=== PATIENT | female | born 1970 | race Caucasian/White ===

== ENCOUNTER 2017-12-08 12:07 | Inpatient (IN) | payer BC ==
[2017-12-08] MEDS ORDERED: VANCOMYCIN IV PER PHARMACY 1 EACH MISC MISCELLANE PRN (14:05)
[2017-12-08] MEDS ORDERED: CLINDAMYCIN 600 MG in DEXTROSE 5% IN WATER 50 ML IVPB STA ×2 (14:06)
--- NOTE | 2017-12-08 14:18 | ED ---
Skin/Abscess/FB HPI - General Chief complaint: Skin/Abscess/Foreign Body Stated complaint: Infection Time Seen by Provider: 12/08/17 13:43 Source: patient Mode of arrival: ambulatory Limitations: no limitations - History of Present Illness Initial comments: Patient presents with abscesses on her face. Patient states approximately 3 weeks ago she had laser surgery of her face which is similar to a chemical peel , states things have been healing well until one week ago. States one week ago she started developing 3 lesions on her face, 2 on left cheek & 1 under the chin. Patient states she was on ciprofloxacin for 1 week however she felt it was making her itch so she was switched to Bactrim. Patient has been on Bactrim for the past 3 days. States abscesses continue to worsen, feels the one under her chin has doubled in size. States she started noticing swelling of her left cheek and around her left eye since yesterday. Patient states she is type I diabetic. Patient denies fevers, chills, nausea, vomiting, eye pain, vision changes, headache, trouble breathing, stridor. complaint: abscess/boil - Related Data Allergies Allergy/AdvReac Type Severity Reaction Status Date / Time ciprofloxacin [From Cipro] Allergy Rash/Hives Verified 12/08/17 14:15 Review of Systems ROS Statement: Those systems with pertinent positive or pertinent negative responses have been documented in the HPI. Constitutional: Denies: fever, chills, weakness Eyes: Denies: eye pain, eye discharge, vision change ENT: Denies: ear pain, throat pain, dental pain, congestion Respiratory: Denies: cough, dyspnea, wheezes, stridor Cardiovascular: Denies: chest pain, palpitations Endocrine: Denies: fatigue Gastrointestinal: Denies: abdominal pain, nausea, vomiting Genitourinary: Denies: frequency Musculoskeletal: Denies: arthralgia, myalgia Skin: Reports: lesions, change in color Neurological: Denies: headache, confusion Past Medical History Past Medical History: Diabetes Mellitus History of Any Multi-Drug Resistant Organisms: None Reported Additional Past Surgical History / Comment(s): caparl tunnel , trigger finger , facial lazer surgery Past Psychological History: Anxiety Smoking Status: Current some day smoker Past Alcohol Use History: Occasional Past Drug Use History: None Reported General Exam - General Exam Comments Initial Comments: Sitting up in bed. No acute distress. Conversing normally. Calm, pleasant. Not ill appearing. Limitations: no limitations General appearance: alert, in no apparent distress Head exam: Present: atraumatic, normocephalic, other (Patient was firm scab crusted lesion on left cheek just lateral to the nose, approximately 2 cm of induration, no fluctuance appreciated. Similar appearing lesion lateral left cheek just anterior to the ear with approximately half centimeter of induration. Similar appearing lesion below the mandible just left of midline with approximately 1 cm induration. All lesions have minimal surrounding erythema. No active drainage. ) Eye exam: Present: PERRL, EOMI, periorbital swelling, other (Mild left eye periorbital edema. Left eye appears normal. Eye movements intact bilaterally without pain. No proptosis. No signs of orbital cellulitis appreciated.). Absent: scleral icterus, conjunctival injection, periorbital tenderness ENT exam: Present: normal exam, normal oropharynx, mucous membranes moist, other (Oropharynx clear. No stridor. No intraoral swelling. No elevation of the floor of the mouth. No James angina findings appreciated.) Neck exam: Present: full ROM, other (See Head above). Absent: meningismus Respiratory exam: Present: normal lung sounds bilaterally. Absent: respiratory distress, wheezes, rales, rhonchi, stridor Cardiovascular Exam: Present: regular rate, normal rhythm GI/Abdominal exam: Present: soft. Absent: distended, tenderness, guarding, rebound Extremities exam: Present: normal inspection Neurological exam: Present: alert, oriented X3 Psychiatric exam: Present: normal affect, normal mood Skin exam: Present: warm, dry, other (See above. ) Course Vital Signs 12/08/17 12:51 Temperature 97.6 F Pulse Rate 83 Respiratory 18 Rate Blood Pressure 171/75 O2 Sat by Pulse 100 Oximetry Medical Decision Making - Medical Decision Making Patient findings appear to be consistent with 3 lesions on face and neck that are indurated, no fluctuance appreciated. No loculation on bedside ultrasound visualization of all 3 lesions. Do not feel patient would benefit from incision and drainage at this time. Patient does have worsening of symptoms overnight despite being on outpatient antibiotics x 1 week, bactrim x 3 days. Patient does have signs of developing left periorbital cellulitis, without orbital cellulitis. Patient does not of any signs of airway compromise. At this time and do not feel patient has James angina. At this time I feel it patient needs IV antibiotics, as she has failed outpatient therapy. We'll get basic lab work and start vancomycin and clindamycin. Will admit for monitoring of symptoms and IV antibiotic therapy. Spoke with Dr. Abdi, updated patient condition, agrees with admission, no further requests at this time. Patient updated without results and plan. Disposition Clinical Impression: Facial cellulitis Disposition: ADMITTED IP TO THIS HOSP Condition: Good Referrals: Nonstaff,Physician [Primary Care Provider] - 1-2 days
[2017-12-08 14:29] LABS: Glucose,Whole Blood 319 mg/dL (75-99)
[2017-12-08] MEDS ORDERED: VANCOMYCIN 1,250 MG in SODIUM CHLORIDE 0.9% 250 ML IVPB ONE (14:30)
[2017-12-08 15:05] LABS: Basophils # (A) 0.1 k/uL (0-0.2); Basophils % (A) 0 %; Eosinophils # (A) 0.5 k/uL (0-0.7); Eosinophils % (A) 4 %; HCT 40.8 % (34.0-46.0); HGB 13.9 gm/dL (11.4-16.0); Lymphocytes # (A) 2.1 k/uL (1.0-4.8); Lymphocytes % (A) 15 %; MCH 31.6 pg (25.0-35.0); MCHC 34.1 g/dL (31.0-37.0); MCV 92.7 fL (80.0-100.0); Mean Platelet Volume 7.1; Monocytes # (A) 0.8 k/uL (0-1.0); Monocytes % (A) 6 %; Neutrophils # (A) 10.1 k/uL (1.3-7.7); Neutrophils % (A) 74 %; Platelet Count 312 k/uL (150-450); RDW 13.1 % (11.5-15.5); WBC 13.7 k/uL (3.8-10.6)
[2017-12-08 15:13] LABS: Anion Gap 10 mmol/L; Blood Urea Nitrogen 20 mg/dL (7-17); Calcium 9.7 mg/dL (8.4-10.2); Carbon Dioxide 26 mmol/L (22-30); Chloride 101 mmol/L (98-107); Glucose 333 mg/dL (74-99); Potassium 4.7 mmol/L (3.5-5.1); Sodium 137 mmol/L (137-145)
[2017-12-08 15:35] VITALS: BMI 22.4
[2017-12-08] MEDS ORDERED: ACETAMINOPHEN TAB 325 MG TAB PO PRN (17:17)
[2017-12-08] MEDS ORDERED: diphenhydrAMINE 50 MG CAP PO PRN (17:17)
[2017-12-08 17:21] LABS: Glucose,Whole Blood 272 mg/dL (75-99)
[2017-12-08] MEDS: INSULIN ASPART 100 UNIT/ML 1 ML 10 ML VIAL SQ SCH ×2 (17:54→20:17)
[2017-12-08 20:06] LABS: Glucose,Whole Blood 251 mg/dL (75-99)
[2017-12-08] MEDS: SERTRALINE 25 MG TAB PO SCH (20:16)
[2017-12-08] MEDS: VANCOMYCIN 1,250 MG in SODIUM CHLORIDE 0.9% 250 ML IVPB SCH (21:43)
[2017-12-09 06:25] LABS: Basophils % (A) 0 %; Eosinophils # (A) 0.6 k/uL (0-0.7); Eosinophils % (A) 6 %; HCT 39.4 % (34.0-46.0); HGB 12.8 gm/dL (11.4-16.0); Lymphocytes # (A) 1.8 k/uL (1.0-4.8); Lymphocytes % (A) 20 %; MCHC 32.4 g/dL (31.0-37.0); MCV 95.8 fL (80.0-100.0); Mean Platelet Volume 7.1; Monocytes # (A) 0.5 k/uL (0-1.0); Monocytes % (A) 5 %; Neutrophils # (A) 5.8 k/uL (1.3-7.7); Neutrophils % (A) 66 %; Platelet Count 282 k/uL (150-450); RBC 4.12 m/uL (3.80-5.40); RDW 13.1 % (11.5-15.5); WBC 8.9 k/uL (3.8-10.6)
[2017-12-09] MEDS: INSULIN ASPART 100 UNIT/ML 1 ML 10 ML VIAL SQ SCH ×6 (06:28→21:23)
[2017-12-09] MEDS: SODIUM CHLORIDE 0.9% 1,000 ML IV SCH ×4 (06:28→16:15)
[2017-12-09 06:33] LABS: Anion Gap 7 mmol/L; Blood Urea Nitrogen 15 mg/dL (7-17); Calcium 8.8 mg/dL (8.4-10.2); Carbon Dioxide 26 mmol/L (22-30); Chloride 106 mmol/L (98-107); Glucose 188 mg/dL (74-99); Potassium 4.6 mmol/L (3.5-5.1); Sodium 139 mmol/L (137-145)
[2017-12-09 06:44] LABS: Glucose,Whole Blood 188 mg/dL (75-99)
[2017-12-09] MEDS ORDERED: INSULIN DETEMIR 100 UNIT/ML 10 ML VIAL SQ SCH ×2 (09:00→21:00)
[2017-12-09] MEDS: VANCOMYCIN 1,250 MG in SODIUM CHLORIDE 0.9% 250 ML IVPB SCH ×2 (09:21→21:08)
[2017-12-09] MEDS: IBUPROFEN 800 MG TAB PO PRN ×3 (09:21→21:53)
[2017-12-09] MEDS: NICOTINE 21MG/24HR PATCH TRANSDERM SCH (11:35)
[2017-12-09 11:58] LABS: Glucose,Whole Blood 461 mg/dL (75-99)
[2017-12-09 12:08] LABS: Glucose,Whole Blood 457 mg/dL (75-99)
[2017-12-09] MEDS ORDERED: NON-FORMULARY DRUG (Insulin Lispro [Humalog Kwikpen] 0 UNIT) SQ SCH (12:30)
[2017-12-09 13:41] LABS: Glucose,Whole Blood 254 mg/dL (75-99)
[2017-12-09 13:58] LABS: Hemoglobin A1C 9.1 % (4.0-6.0)
--- NOTE | 2017-12-09 14:45 | P.GSCN ---
<Siobhan Ballesteros M - Last Filed: 12/09/17 14:48> History of Present Illness Consult date: 12/09/17 Reason for Consult: Facial cellulitis History of present illness: 47-year-old female being seen at the request of the attending for a surgical eval in a patient who developed an abscess under the chin and left side of the face. Patient states approximately 3 weeks ago had laser surgery on her upper lip similar to a chemical peel for scar tissue. 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 Patient stated that she follow protocol at work after the incident . Was worked up there was no evidence of MRSA and was started on prophylactically Cipro. Patient stated that she took the Cipro for at least a week had what she thought was a reaction swelling to the left side of the face with swelling in the hands as well . Patient stated that she went to an urgent care in the community that she lives in and was switched to Bactrim with a topical lotion. Patient stated that the abscess seemed to get worse there was itching increase swelling of the left cheek around the left eye. The abscess under the chin seem to be getting worse as well. There was no fever chills. Patient has a history of type 1 diabetes. Denied any prior episodes when questioning. Patient states she became concerned presented to the emergency room to be evaluated for the above- mentioned symptoms. Patient does not live in the community lives about 2 hours away. Patient states she is here visiting her mother. Patient states no cultures obtained.. On the left cheek lateral to the nose 2 cm induration noted similar lesions of the left cheek just anterior to the left ear. There is also a similar lesion below the mandible. Under the left chin lesion noted firm positive tenderness no drainage noted the lesions have minimal surrounding erythema Review of Systems Essentially unremarkable except as mentioned in the present illness Past Medical History Past Medical History: Diabetes Mellitus Additional Past Medical History / Comment(s): Type 1 diabetes mellitus History of Any Multi-Drug Resistant Organisms: None Reported Additional Past Surgical History / Comment(s): caparl tunnel , trigger finger , facial lazer surgery Past Anesthesia/Blood Transfusion Reactions: No Reported Reaction Past Psychological History: Anxiety Smoking Status: Current some day smoker Past Alcohol Use History: Occasional Past Drug Use History: None Reported - Past Family History Mother Family Medical History: Diabetes Mellitus, Hypertension Additional Family Medical History / Comment(s): Type 2 diabetes mellitus Medications and Allergies Home Medications Medication Instructions Recorded Confirmed Type Ibuprofen [Motrin Ib] 600 mg PO Q6H PRN 12/08/17 12/08/17 History Insulin Glargine,Hum.rec.anlog 24 unit SQ AC-BRKFST 12/08/17 12/08/17 History [Lantus Solostar] Insulin Lispro [humaLOG Kwikpen] 2 - 10 unit SQ AC-TID 12/08/17 12/08/17 History Sertraline [Zoloft] 25 mg PO HS 12/08/17 12/08/17 History Sulfamethox-Tmp 800-160Mg [Bactrim 1 tab PO BID 12/08/17 12/08/17 History DS 800-160 mg] diphenhydrAMINE [Benadryl] 50 mg PO TID PRN 12/08/17 12/08/17 History Allergies Allergy/AdvReac Type Severity Reaction Status Date / Time ciprofloxacin [From Cipro] Allergy Rash/Hives Verified 12/08/17 14:15 Surgical - Exam Vital Signs Temp Pulse Resp BP Pulse Ox 97.6 F 83 18 171/75 100 12/08/17 12:51 12/08/17 12:51 12/08/17 12:51 12/08/17 12:51 12/08/17 12:51 GENERAL APPEARANCE: Pleasant talkative 47-year-old female patient is alert, oriented, in no acute distress. VITAL SIGNS: Reviewed HEENT: Head is normocephalic and atraumatic. Pupils are equal and reactive. The nares are patent. Oropharynx is clear without lesions. NECK: Supple without lymphadenopathy. Traches midline. HEART: S1, S2. Regular rate and rhythm. LUNGS: No crackles or wheezes are heard. ABDOMEN: Soft, nontender, nondistended with good bowel sounds. No peritoneal signs. No palpable organomegaly or masses. EXTREMITIES: Normal skin color and turgor. No cyanosis, rash, ulceration, clubbing or edema. Radial pedal pulses are 2/4 bilaterally. NEUROLOGICAL: No focal deficits. Strength and sensation are grossly intact. Skin scabbed crusted lesions noted on the upper chin no redness, scabbed lesion crusted on the left cheek lateral to the nose, 2 cm induration. A lesion left lateral cheek just anterior to the ear. A lesion noted to the left mandible. There is mild surrounding erythema to the skin lesions no active drainage noted Results - Labs 12/09/17 05:48 12/09/17 05:48 Abnormal Lab Results - Last 24 Hours (Table) 12/08/17 12/08/17 12/08/17 Range/Units 14:35 14:35 17:18 WBC 13.7 H (3.8-10.6) k/uL Neutrophils # 10.1 H (1.3-7.7) k/uL BUN 20 H (7-17) mg/dL Glucose 333 H (74-99) mg/dL POC Glucose (mg/dL) 272 H (75-99) mg/dL 12/08/17 12/09/17 12/09/17 Range/Units 20:03 05:48 06:21 WBC (3.8-10.6) k/uL Neutrophils # (1.3-7.7) k/uL BUN (7-17) mg/dL Glucose 188 H (74-99) mg/dL POC Glucose (mg/dL) 251 H 188 H (75-99) mg/dL 12/09/17 12/09/17 12/09/17 Range/Units 11:46 11:58 13:40 WBC (3.8-10.6) k/uL Neutrophils # (1.3-7.7) k/uL BUN (7-17) mg/dL Glucose (74-99) mg/dL POC Glucose (mg/dL) 461 H 457 H 254 H (75-99) mg/dL Diabetes panel 12/08/17 12/09/17 Range/Units 14:35 05:48 Sodium 137 139 (137-145) mmol/L Potassium 4.7 4.6 (3.5-5.1) mmol/L Chloride 101 106 (98-107) mmol/L Carbon Dioxide 26 26 (22-30) mmol/L BUN 20 H 15 (7-17) mg/dL Creatinine 0.73 0.70 (0.52-1.04) mg/dL Glucose 333 H 188 H (74-99) mg/dL Calcium 9.7 8.8 (8.4-10.2) mg/dL Calcium panel 12/08/17 12/09/17 Range/Units 14:35 05:48 Calcium 9.7 8.8 (8.4-10.2) mg/dL Pituitary panel 12/08/17 12/09/17 Range/Units 14:35 05:48 Sodium 137 139 (137-145) mmol/L Potassium 4.7 4.6 (3.5-5.1) mmol/L Chloride 101 106 (98-107) mmol/L Carbon Dioxide 26 26 (22-30) mmol/L BUN 20 H 15 (7-17) mg/dL Creatinine 0.73 0.70 (0.52-1.04) mg/dL Glucose 333 H 188 H (74-99) mg/dL Calcium 9.7 8.8 (8.4-10.2) mg/dL Adrenal panel 12/08/17 12/09/17 Range/Units 14:35 05:48 Sodium 137 139 (137-145) mmol/L Potassium 4.7 4.6 (3.5-5.1) mmol/L Chloride 101 106 (98-107) mmol/L Carbon Dioxide 26 26 (22-30) mmol/L BUN 20 H 15 (7-17) mg/dL Creatinine 0.73 0.70 (0.52-1.04) mg/dL Glucose 333 H 188 H (74-99) mg/dL Calcium 9.7 8.8 (8.4-10.2) mg/dL Assessment and Plan Assessment: Impression Present on admission facial cellulitis failed outpatient treatment on Cipro 1 week switched to Bactrim for 3 days Type 1 diabetes Present on admission 3 skin lesions on the face neck and chin on the left side Left periorbital cellulitis Current every day smoker A recent laser treatment to the upper lip Plan Patient will undergo an incision and drainage of the abscess under the chin today per Dr. Forbes Await infectious disease eval pending Pain control IV antibiotics as ordered DVT and GI prophylaxis Keep nothing by mouth until procedure Cultures to be obtained follow up on results Surgical consultation dictated for Dr. Forbes The above impression and plan of care have been discussed and directed by signing physician. Siobhan Ballesteros nurse practitioner acting as scribe for signing physician. <Tootie Forbes - Last Filed: 12/10/17 04:30> Surgical - Exam Vital Signs Temp Pulse Resp BP Pulse Ox 97.6 F 83 18 171/75 100 12/08/17 12:51 12/08/17 12:51 12/08/17 12:51 12/08/17 12:51 12/08/17 12:51 Results - Labs 12/09/17 05:48 12/09/17 05:48 Abnormal Lab Results - Last 24 Hours (Table) 12/09/17 12/09/17 12/09/17 Range/Units 05:48 05:48 06:21 Glucose 188 H (74-99) mg/dL POC Glucose (mg/dL) 188 H (75-99) mg/dL Hemoglobin A1c 9.1 H (4.0-6.0) % 12/09/17 12/09/17 12/09/17 Range/Units 11:46 11:58 13:40 Glucose (74-99) mg/dL POC Glucose (mg/dL) 461 H 457 H 254 H (75-99) mg/dL Hemoglobin A1c (4.0-6.0) % 12/09/17 12/09/17 Range/Units 14:51 17:16 Glucose (74-99) mg/dL POC Glucose (mg/dL) 115 H 167 H (75-99) mg/dL Hemoglobin A1c (4.0-6.0) % Diabetes panel 12/09/17 12/09/17 Range/Units 05:48 05:48 Sodium 139 (137-145) mmol/L Potassium 4.6 (3.5-5.1) mmol/L Chloride 106 (98-107) mmol/L Carbon Dioxide 26 (22-30) mmol/L BUN 15 (7-17) mg/dL Creatinine 0.70 (0.52-1.04) mg/dL Glucose 188 H (74-99) mg/dL Hemoglobin A1c 9.1 H (4.0-6.0) % Calcium 8.8 (8.4-10.2) mg/dL Calcium panel 12/09/17 Range/Units 05:48 Calcium 8.8 (8.4-10.2) mg/dL Pituitary panel 12/09/17 Range/Units 05:48 Sodium 139 (137-145) mmol/L Potassium 4.6 (3.5-5.1) mmol/L Chloride 106 (98-107) mmol/L Carbon Dioxide 26 (22-30) mmol/L BUN 15 (7-17) mg/dL Creatinine 0.70 (0.52-1.04) mg/dL Glucose 188 H (74-99) mg/dL Calcium 8.8 (8.4-10.2) mg/dL Adrenal panel 12/09/17 Range/Units 05:48 Sodium 139 (137-145) mmol/L Potassium 4.6 (3.5-5.1) mmol/L Chloride 106 (98-107) mmol/L Carbon Dioxide 26 (22-30) mmol/L BUN 15 (7-17) mg/dL Creatinine 0.70 (0.52-1.04) mg/dL Glucose 188 H (74-99) mg/dL Calcium 8.8 (8.4-10.2) mg/dL
[2017-12-09 14:53] LABS: Glucose,Whole Blood 115 mg/dL (75-99)
--- NOTE | 2017-12-09 14:59 | HP ---
HISTORY AND PHYSICAL CHIEF COMPLAINT: Painful infection of the face. HISTORY OF PRESENT ILLNESS: This is the first known admission to this hospital for this 47-year-old G0, P0, A3 white female. She has a small abscess on the lateral jaw, which then associated with an ulcer on the left cheek. She apparently had some kind of a dermatologic "peel" after which she developed redness, pain, swelling and heat in the face. She had been on Cipro and then she thinks she had a really reaction to that. She stopped and her face got worse and she went back on Cipro. Eventually she wound up coming into the emergency room where she was diagnosed as having Staph cellulitis of the face with several areas of blood in skin breakdown or ulceration, mass underneath the chin. She is diabetic. REVIEW OF SYSTEMS: She has had no headaches, no neurologic deficits, change in vision or hearing, chest pain, shortness of breath, cough, hemoptysis, hypertension, murmurs, rheumatic fever, arthralgias, orthopnea, PND, abdominal pain, nausea, vomiting, hematemesis, melena, hematochezia, colitis, diverticulosis, diverticulitis, hemorrhoids, jaundice, hepatitis, cirrhosis, hematuria, frequency, urgency, arthralgias, etc. Her diabetes is usually well controlled. Past medical history, family history and social history reveal that she is on Humalog sliding scale with Lantus 26 units a day. She IS NOW ALLERGIC TO CIPRO. Surgically she has had a trigger finger repair and two carpal tunnel releases. She smokes about a pack cigarettes a day. PHYSICAL EXAMINATION: Blood pressure is 125/78 with a pulse of 83, respirations of 24, and she is afebrile. In general, she appeared to be in some discomfort. She had extensive cellulitis of the face with a necrotic area in front of the left cheek as well as just below and in front of the left ear. She had several eschars on the skin just above the upper lip. She also had a mass in the submental area which may be adenopathy or an abscess. Chest is clear. Cardiac exam is normal. No murmurs. The abdomen is soft, nontender. EXTREMITIES: Normal. IMPRESSION: 1. Erysipelas, probably secondary to Staphylococcus on the face. 2. Insulin-dependent diabetes mellitus. PLAN: 1. Bed rest. 2. IV fluids. 3. IV vancomycin. 4. Consult with surgical to see if there is a mass underneath the jaw that could be drained. 5. Infectious Disease. MMODL / IJN: [id number] /
--- NOTE | 2017-12-09 15:04 | PN ---
PROGRESS NOTE DATE OF SERVICE: 12/09/17 CHIEF COMPLAINT: Facial cellulitis. HISTORY OF PRESENT ILLNESS: This lady is doing particular well in terms of the discomfort. There may be slight decrease in swelling. PHYSICAL EXAM: She continues to have extensive erythema and swelling around the cheeks in the upper lip and somewhat around the left eye. IMPRESSION: Facial cellulitis and possible submental abscess, probably due to Staphylococcus aureus. PLAN: Continue with IV antibiotics. MMODL / IJN: [id number] /
[2017-12-09 15:40] LABS: Glucose,Whole Blood 78 mg/dL (75-99)
[2017-12-09 17:22] LABS: Glucose,Whole Blood 167 mg/dL (75-99)
[2017-12-09] MEDS ORDERED: cefTRIAXone IN SWFI 2,000 MG/20 ML SYRINGE IVP SCH (20:00)
[2017-12-09] MEDS: MUPIROCIN 2% OINT 22 GM TUBE TOPICAL SCH (20:49)
[2017-12-09] MEDS: MULTIVITAMINS, THERA 1 EACH TAB PO SCH (20:50)
[2017-12-09] MEDS ORDERED: SERTRALINE 25 MG TAB PO SCH (21:00)
[2017-12-09 21:01] LABS: Glucose,Whole Blood 99 mg/dL (75-99)
[2017-12-09] MEDS: SERTRALINE 25 MG TAB PO SCH (21:07)
[2017-12-09] MEDS: diphenhydrAMINE 25 MG CAP PO PRN (21:14)
--- NOTE | 2017-12-09 23:00 | P.CONS ---
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 She relates that it is expected it is a very busy job and because there is a forensic component is very exacting. Generally she feels well and because she was having some difficulty with scarring on her face she wants under a laser dermabrasion to her face which went very well. She was having increasing improvements when she suddenly had a significant change. She had developed a small injury on the her left hand dorsal surface and was given ciprofloxacin. She then apparently developed a significant ALLERGIC reaction after attempting to finish the course of the antibiotic. She relates that she had stopped and started several times and then was trying to complete the course of antibiotic. She then had the sudden onset of hives that were significant and even a bit of tongue swelling which she treated with Benadryl and stopping the antibiotic. Shortly thereafter she developed evidence of the lesions on the left side of her face and submental. They became much worse. She started feeling very poorly with fever and significant swelling including to her left eye. Because she felt so poorly she brought her to dogs to stay with her mother which is here in our community. She does have a history of diabetes mellitus type 1 and started feeling much more poorly. Constantly she came to our hospital for further intervention. She was found evidence of significant abscess submental, and has been seen by surgery with plans for incision and drainage to the site and possibly debridement of some of the other abscess on the face. The patient relates that she was doing very well after laser dermabrasion and did not think that the procedure was related to the current difficulties. However continues to have areas of peeling skin from the dermabrasion. Review of Systems 47-year-old woman who relates that she's feeling slightly better since coming to Hospital HEENT:Denies headache or acute visual change. Denies sinus or mouth discomforts. Denies neck stiffness or pain. Denies significant oral cavity pain. Denies difficulty on swallowing. Lungs: Denies significant shortness of breath, cough, sputum production, or hemoptysis. Cardiovascular: Denies significant shortness of breath, chest pain, chest wall pain, orthopnea, dyspnea on exertion, syncope Gastrointestinal:Denies nausea, vomiting, diarrhea, constipation, hematemesis, melena, hematochezia. No no significant change of bowel habit noticed. Musculoskeletal: denies significant myalgias or arthralgias. No new joint swelling. Denies new back pain. Skin: As per the HPI History of Laser Procedure to the Skin of Her Face and Then Developed Multiple Abscesses. Neuro: Denies headache or visual change. Denies any new onset weakness or difficulty with ambulation. Denies falls or seizures. Psychiatric:Denies anxiety or depression. Endocrine: Denies significant fatigue, denies significant weight loss or weight gain. Relates that the diabetes mellitus type 1 is usually well controlled Past Medical History Past Medical History: Diabetes Mellitus Additional Past Medical History / Comment(s): Type 1 diabetes mellitus History of Any Multi-Drug Resistant Organisms: None Reported Additional Past Surgical History / Comment(s): caparl tunnel , trigger finger , facial lazer surgery Past Anesthesia/Blood Transfusion Reactions: No Reported Reaction Past Psychological History: Anxiety Additional Psychological History / Comment(s): Single but has a boyfriend. 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 Occasional smoker. No significant alcohol use. No recreational drug use. No international travel has 2 pet dogs and a parrot Smoking Status: Current some day smoker Past Alcohol Use History: Occasional Past Drug Use History: None Reported - Past Family History Mother Family Medical History: Diabetes Mellitus, Hypertension Additional Family Medical History / Comment(s): Type 2 diabetes mellitus Medications and Allergies Home Medications and Allergies Comment(s): Current Medications Acetaminophen (Tylenol Tab) 650 mg PO Q8HR PRN PRN Reason: Fever and/ or Pain Last Admin: 12/08/17 17:40 Dose: 650 mg Ceftriaxone Sodium (Rocephin) 2,000 mg IVP HS ZANE Last Admin: 12/09/17 20:13 Dose: 2,000 mg Diphenhydramine HCl (Benadryl) 50 mg PO QID PRN PRN Reason: Itching Last Admin: 12/08/17 20:16 Dose: 50 mg Diphenhydramine HCl (Benadryl) 50 mg PO TID PRN PRN Reason: Allergic Reaction Last Admin: 12/09/17 21:14 Dose: 50 mg Sodium Chloride (Saline 0.9%) 1,000 mls @ 125 mls/hr IV .Q8H ZANE Last Admin: 12/09/17 16:15 Dose: Not Given Vancomycin HCl 1,250 mg/ (Sodium Chloride) 250 mls @ 125 mls/hr IVPB Q12HR [facility] Last Admin: 12/09/17 21:08 Dose: 125 mls/hr Ibuprofen (Motrin) 800 mg PO QID PRN PRN Reason: Pain Last Admin: 12/09/17 21:53 Dose: 800 mg Insulin Aspart (Novolog) 0 unit SQ ACHS [facility] PRN Reason: Protocol Last Admin: 12/09/17 21:23 Dose: Not Given Insulin Aspart (Novolog) 10 unit SQ AC-TID [facility] Last Admin: 12/09/17 17:58 Dose: 4 unit Insulin Detemir (Levemir) 30 unit SQ [facility] Last Admin: 12/09/17 19:19 Dose: Not Given Miscellaneous Information (Vancomycin Trough Due) 1 each MISCELLANE ONCE ONE Stop: 12/10/17 08:01 Multivitamins (Theragran) 1 each PO DAILY@1200 [facility] Last Admin: 12/09/17 20:50 Dose: 1 each Mupirocin (Bactroban Oint) 1 applic TOPICAL TID [facility] Last Admin: 12/09/17 20:49 Dose: 1 applic Nicotine (Habitrol 21mg/24hr Patch) 1 patch TRANSDERM DAILY [facility] Last Admin: 12/09/17 11:35 Dose: 1 patch Sertraline HCl (Zoloft) 25 mg PO [facility] Last Admin: 12/09/17 21:07 Dose: 25 mg Home Medications Medication Instructions Recorded Confirmed Type Ibuprofen [Motrin Ib] 600 mg PO Q6H PRN 12/08/17 12/08/17 History Insulin Glargine,Hum.rec.anlog 24 unit SQ AC-BRKFST 12/08/17 12/08/17 History [Lantus Solostar] Insulin Lispro [humaLOG Kwikpen] 2 - 10 unit SQ AC-TID 12/08/17 12/08/17 History Sertraline [Zoloft] 25 mg PO HS 12/08/17 12/08/17 History Sulfamethox-Tmp 800-160Mg [Bactrim 1 tab PO BID 12/08/17 12/08/17 History DS 800-160 mg] diphenhydrAMINE [Benadryl] 50 mg PO TID PRN 12/08/17 12/08/17 History Allergies Allergy/AdvReac Type Severity Reaction Status Date / Time ciprofloxacin [From Cipro] Allergy Rash/Hives Verified 12/08/17 14:15 Physical Exam Vitals: Vital Signs Temp Pulse Resp BP Pulse Ox 12/09/17 21:17 73 16 12/09/17 20:06 97.8 F 73 16 126/65 97 12/09/17 16:41 98.2 F 77 16 136/79 97 12/09/17 16:40 98.2 F 136 H 28 H 96 12/09/17 11:37 97.7 F 65 18 127/71 12/09/17 08:35 98.2 F 71 20 108/62 100 12/08/17 23:53 88 18 112/85 98 Intake and Output 12/09/17 12/09/17 12/09/17 06:59 14:59 22:59 Intake Total 240 200 Balance 240 200 Intake: Oral 240 200 Other: Voiding Method Toilet # Voids 2 5 1 47-year-old woman presents to Hospital complaining multiple abscess. Relates that the left eye swelling is improved and feels slightly better. HEENT: Anicteric conjunctiva are pink and moist nasal mucosa grossly intact without significant lesions, there is no thrush. On the exam left eye only has minimal swelling. There are multiple somewhat necrotic areas on her face including the left side of the face at the base of the nose as well as to the lateral aspect of the cheek. In the large submental abscess that is very tender with a necrotic area. Neck: The neck is supple without significant lymphadenopathy or thyromegaly. Lungs: Good bilateral air entry without significant crackles or wheezes. There is no significant bronchial sounds. There is no egophony or dullness. Heart: Regular rate and rhythm with an audible S1-S2, no S3 no S4. There is no significant murmur click or rub, PMI was nondisplaced. Abdomen: Positive bowel sounds soft and nontender without palpable masses or organomegaly. There was no guarding or rebound. Extremities: The upper extremities have excellent pulses they are symmetric, no significant petechiae or telangiectasia. No splinter hemorrhages were noted. The lower extremities are free from significant edema. The peripheral pulses were 2+ and symmetric. Neuro: Awake alert oriented to person place and time. There are no acute new gross focal sensory motor deficits. Results CBC & Chem 7: 12/09/17 05:48 12/09/17 05:48 Labs: Abnormal Lab Results - Last 24 Hours (Table) 12/09/17 12/09/17 12/09/17 Range/Units 05:48 05:48 06:21 Glucose 188 H (74-99) mg/dL POC Glucose (mg/dL) 188 H (75-99) mg/dL Hemoglobin A1c 9.1 H (4.0-6.0) % 12/09/17 12/09/17 12/09/17 Range/Units 11:46 11:58 13:40 Glucose (74-99) mg/dL POC Glucose (mg/dL) 461 H 457 H 254 H (75-99) mg/dL Hemoglobin A1c (4.0-6.0) % 12/09/17 12/09/17 Range/Units 14:51 17:16 Glucose (74-99) mg/dL POC Glucose (mg/dL) 115 H 167 H (75-99) mg/dL Hemoglobin A1c (4.0-6.0) % Laboratory Results WBC 8.9 k/uL (3.8-10.6) 12/09/17 05:48 RBC 4.12 m/uL (3.80-5.40) 12/09/17 05:48 Hgb 12.8 gm/dL (11.4-16.0) 12/09/17 05:48 Hct 39.4 % (34.0-46.0) 12/09/17 05:48 MCV 95.8 fL (80.0-100.0) 12/09/17 05:48 MCH 31.0 pg (25.0-35.0) 12/09/17 05:48 MCHC 32.4 g/dL (31.0-37.0) 12/09/17 05:48 RDW 13.1 % (11.5-15.5) 12/09/17 05:48 Plt Count 282 k/uL (150-450) 12/09/17 05:48 Neutrophils % 66 % 12/09/17 05:48 Lymphocytes % 20 % 12/09/17 05:48 Monocytes % 5 % 12/09/17 05:48 Eosinophils % 6 % 12/09/17 05:48 Basophils % 0 % 12/09/17 05:48 Neutrophils # 5.8 k/uL (1.3-7.7) 12/09/17 05:48 Lymphocytes # 1.8 k/uL (1.0-4.8) 12/09/17 05:48 Monocytes # 0.5 k/uL (0-1.0) 12/09/17 05:48 Eosinophils # 0.6 k/uL (0-0.7) 12/09/17 05:48 Basophils # 0.0 k/uL (0-0.2) 12/09/17 05:48 Sodium 139 mmol/L (137-145) 12/09/17 05:48 Potassium 4.6 mmol/L (3.5-5.1) 12/09/17 05:48 Chloride 106 mmol/L (98-107) 12/09/17 05:48 Carbon Dioxide 26 mmol/L (22-30) 12/09/17 05:48 Anion Gap 7 mmol/L 12/09/17 05:48 BUN 15 mg/dL (7-17) 12/09/17 05:48 Creatinine 0.70 mg/dL (0.52-1.04) 12/09/17 05:48 Est GFR (MDRD) Af Amer >60 (>60 ml/min/1.73 sqM) 12/09/17 05:48 Est GFR (MDRD) Non-Af >60 (>60 ml/min/1.73 sqM) 12/09/17 05:48 Glucose 188 mg/dL (74-99) H 12/09/17 05:48 POC Glucose (mg/dL) 99 mg/dL (75-99) 12/09/17 20:58 POC Glu Ticket Sales Supervisor ID Capri Mijares 12/09/17 20:[address] Glu mg/dL 214 12/09/17 05:48 Hemoglobin A1c 9.1 % (4.0-6.0) H 12/09/17 05:48 Calcium 8.8 mg/dL (8.4-10.2) 12/09/17 05:48 Urine HCG, Qual Not Detected (Not Detectd) 12/09/17 15:20 Assessment and Plan (1) Facial cellulitis Narrative/Plan: 47-year-old female who has a long-standing history of diabetes mellitus type 1 with A1c of 9.1. Patient relates that she was having some difficulty with scarring of her face and underwent a laser dermabrasion involve the bilateral cheeks as well as the upper lip. She did well for some time after the procedure. She was progressing to the point in time of the layer of skin peeling with intact skin beneath when she started developed increasing difficulties with her face. The patient relates she had suffered an injury at work. She works for the [employer] and had injury to the dorsum of the left hand. She was treated with a course of ciprofloxacin. She was having some difficulties with the course since stopped and started it several times. She attempted one further attempt to complete the antibiotics when she should develop a specific and facial swelling, left eye swelling and some tongue swelling and constantly stop the antibiotic and took some Benadryl. After that she developed the lesions on her face. She does try to discount the tie into her dermabrasion, however we discussed that the skin is the major barrier to infection, and when it has been injured it increases its risk of developing an infection especially with her uncontrolled diabetes mellitus type 1. Antibiotic therapy with vancomycin was begun. We'll add in ceftriaxone at this time for coverage of potential gram-negative organisms, and for MSSA and strep for rapidly bacteriocidal activity. Topical treatment with mupirocin to the abscess sites. Is being seen by surgery with plans for draining of the submental abscess and for further culture data. Pain control appears to be adequate. The extensive facial swelling is definitely improved. Multivitamin with zinc is requested to improve her nutritional status. Current Visit: Yes Status: Acute Code(s): L03.211 - CELLULITIS OF FACE SNOMED Code(s): 641031960 (2) Diabetes mellitus type 1 with complications Current Visit: Yes Status: Acute Code(s): E10.8 - TYPE 1 DIABETES MELLITUS WITH UNSPECIFIED COMPLICATIONS SNOMED Code(s): 37218246 (3) Hemoglobin A1C greater than 9%, indicating poor diabetic control Current Visit: Yes Status: Acute Code(s): R73.09 - OTHER ABNORMAL GLUCOSE SNOMED Code(s): 709023530
[2017-12-10] MEDS: SODIUM CHLORIDE 0.9% 1,000 ML IV SCH ×3 (03:28→23:24)
[2017-12-10] MEDS: diphenhydrAMINE 25 MG CAP PO PRN (04:34)
[2017-12-10] MEDS: IBUPROFEN 800 MG TAB PO PRN ×3 (04:35→16:40)
[2017-12-10 06:46] LABS: Basophils % (A) 0 %; Eosinophils # (A) 0.5 k/uL (0-0.7); Eosinophils % (A) 7 %; HCT 39.5 % (34.0-46.0); HGB 12.3 gm/dL (11.4-16.0); Lymphocytes # (A) 1.5 k/uL (1.0-4.8); Lymphocytes % (A) 21 %; MCH 30.7 pg (25.0-35.0); MCHC 31.2 g/dL (31.0-37.0); MCV 98.5 fL (80.0-100.0); Mean Platelet Volume 6.5; Monocytes # (A) 0.4 k/uL (0-1.0); Monocytes % (A) 6 %; Neutrophils # (A) 4.4 k/uL (1.3-7.7); Neutrophils % (A) 63 %; Platelet Count 263 k/uL (150-450); RBC 4.01 m/uL (3.80-5.40); RDW 13.1 % (11.5-15.5)
[2017-12-10 06:55] LABS: ALT 20 U/L (9-52); AST 23 U/L (14-36); Alkaline Phosphatase 49 U/L (38-126); Anion Gap 7 mmol/L; Blood Urea Nitrogen 14 mg/dL (7-17); Calcium 8.6 mg/dL (8.4-10.2); Carbon Dioxide 24 mmol/L (22-30); Chloride 111 mmol/L (98-107); Glucose 151 mg/dL (74-99); Potassium 4.6 mmol/L (3.5-5.1); Sodium 142 mmol/L (137-145); Total Bilirubin 0.2 mg/dL (0.2-1.3); Total Protein 5.4 g/dL (6.3-8.2)
[2017-12-10 07:27] LABS: Glucose,Whole Blood 169 mg/dL (75-99)
[2017-12-10] MEDS ORDERED: INSULIN DETEMIR 100 UNIT/ML 10 ML VIAL SQ SCH (07:30)
[2017-12-10] MEDS ORDERED: VANCOMYCIN TROUGH DUE 1 EACH MISC MISCELLANE ONE (08:00)
[2017-12-10] MEDS ORDERED: NICOTINE 21MG/24HR PATCH TRANSDERM SCH (09:00)
[2017-12-10 09:19] LABS: Glucose,Whole Blood 174 mg/dL (75-99)
[2017-12-10] MEDS: NICOTINE 21MG/24HR PATCH TRANSDERM SCH (09:59)
[2017-12-10] MEDS: MUPIROCIN 2% OINT 22 GM TUBE TOPICAL SCH ×2 (09:59→16:35)
[2017-12-10] MEDS: VANCOMYCIN 1,250 MG in SODIUM CHLORIDE 0.9% 250 ML IVPB SCH (09:59)
[2017-12-10] MEDS: INSULIN ASPART 100 UNIT/ML 1 ML 10 ML VIAL SQ SCH ×6 (10:32→18:17)
[2017-12-10 11:22] LABS: Glucose,Whole Blood 225 mg/dL (75-99)
[2017-12-10] MEDS ORDERED: IV FLUID CONTINUATION 700 ML IV ONE (12:44)
[2017-12-10] MEDS ORDERED: LACTATED RINGERS 1,000 ML IV SCH (12:50)
[2017-12-10] MEDS ORDERED: HYDROmorphone 0.5 MG/0.5 ML SYRINGE IVP PRN (12:50)
[2017-12-10] MEDS ORDERED: ONDANSETRON 4 MG/2 ML VIAL IVP ONE (12:50)
[2017-12-10] MEDS ORDERED: DEXAMETHASONE SOD PHOSPHATE 10 MG/ML 1 ML VIAL IV ONE (12:50)
[2017-12-10 13:49] LABS: Glucose,Whole Blood 235 mg/dL (75-99)
--- NOTE | 2017-12-10 14:09 | US ---
EXAMINATION TYPE: US soft tissue head/neck DATE OF EXAM: 12/10/2017 COMPARISON: NONE CLINICAL HISTORY: Neck mass, to determine if neck mass is solid or cystic . Patient stated had allerg ic reaction to Cipro and Bactrim resulting in facial redness and areas of swelling with skin ulcerati ons and now staph infection. 1) Inferior to mandible at patient's palpable/skin redness a hypoechoic area is noted anteriorly = 2. 4 x 1.9 x 1.2cm with associated vascularity. 2) At left cheek swelling/skin ulceration a hypoechoic area is also noted anteriorly = 2.6 x 2.7 x 0. 2cm. Deeper to this area a hypoechoic area is also imaged = 1.7 x1.3 x 3.3cm and patient states is pa lpable lateral to left nostril. IMPRESSION: Findings may represent underlying phlegmon, cellulitis. Consider contrast-enhanced neck CT to better assess for abscess as indicated.
[2017-12-10] MEDS ORDERED: KETAMINE 10 MG/ML 20 ML VIAL ONE (14:17)
[2017-12-10] MEDS ORDERED: MIDAZOLAM 2 MG/2 ML VIAL ONE (14:17)
[2017-12-10] MEDS ORDERED: PROPOFOL 10 MG/ML 20 ML VIAL IV ONE (14:17)
[2017-12-10] MEDS ORDERED: fentaNYL (PF) 50 MCG/ML 2 ML AMP ONE (14:17)
[2017-12-10] MEDS ORDERED: BUPIVACAINE (PF) 0.25% 30 ML VIAL SQ ONE ×2 (14:35→14:38)
[2017-12-10] MEDS ORDERED: HYDROGEN PEROXIDE BOTTLE TOPICAL ONE (14:43)
[2017-12-10 15:13] LABS: Glucose,Whole Blood 218 mg/dL (75-99)
[2017-12-10 15:16] VITALS: RESP 16
[2017-12-10] MEDS ORDERED: SODIUM CHLORIDE 0.9% 1,000 ML IV ONE ×2 (15:26)
[2017-12-10] MEDS ORDERED: VANCOMYCIN 1,000 MG in SODIUM CHLORIDE 0.9% 250 ML IVPB SCH (16:00)
[2017-12-10] MEDS: MULTIVITAMINS, THERA 1 EACH TAB PO SCH (16:35)
[2017-12-10 16:37] VITALS: TEMP 97.8
[2017-12-10 16:38] VITALS: BP 128/65; PULSE 71
--- NOTE | 2017-12-10 17:00 | PN ---
PROGRESS NOTE CHIEF COMPLAINT: MRSA cellulitis and ulcers of the face. HISTORY OF PRESENT ILLNESS: This lady is doing much better. She did not go for drainage of the mass under the jaw yesterday and she is supposed to go today. She is definitely feeling better. She may have reacted to Rocephin in that she developed some itching and a tightness in the throat. This will be stopped. REVIEW OF SYSTEMS: She is otherwise doing well. She has had no fever chills. PHYSICAL EXAM: CHEST: Clear. Cardiac exam is normal. Abdomen is soft, nontender and face is much less swollen, inflamed and some of the lesions that were draining are drying up. IMPRESSION: 1. Probable Staph or Strep cellulitis of the face. 2. Possible drug reaction to cephalosporin. PLAN: She is supposed to go to the operating room today. We will order an ultrasound to ensure that there is an abscess before surgery. If this is drained, she could probably go home later in the day. MMODL / IJN: [id number] /
[2017-12-10] MEDS ORDERED: HYDROcodone/APAP 5-325MG 1 EACH TAB PO PRN (17:42)
--- NOTE | 2017-12-10 17:44 | P.PCN ---
Date of Procedure: 12/10/17 Preoperative Diagnosis: Facial cellulitis. Postoperative Diagnosis: same Procedure(s) Performed: incision and drainage of facial abscess and neck abscess Anesthesia: MAC Surgeon: Tootie Forbes Estimated Blood Loss (ml): 5 Pathology: other (aerobic and anaerobic cultures, chin mesion) Condition: stable Disposition: floor
[2017-12-10 18:12] LABS: Glucose,Whole Blood 281 mg/dL (75-99)
--- NOTE | 2017-12-10 21:23 | P.PN ---
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 She relates that it is expected it is a very busy job and because there is a forensic component is very exacting. Generally she feels well and because she was having some difficulty with scarring on her face she wants under a laser dermabrasion to her face which went very well. She was having increasing improvements when she suddenly had a significant change. She had developed a small injury on the her left hand dorsal surface and was given ciprofloxacin. She then apparently developed a significant ALLERGIC reaction after attempting to finish the course of the antibiotic. She relates that she had stopped and started several times and then was trying to complete the course of antibiotic. She then had the sudden onset of hives that were significant and even a bit of tongue swelling which she treated with Benadryl and stopping the antibiotic. Shortly thereafter she developed evidence of the lesions on the left side of her face and submental. They became much worse. She started feeling very poorly with fever and significant swelling including to her left eye. Because she felt so poorly she brought her to dogs to stay with her mother which is here in our community. She does have a history of diabetes mellitus type 1 and started feeling much more poorly. Constantly she came to our hospital for further intervention. She was found evidence of significant abscess submental, and has been seen by surgery with plans for incision and drainage to the site and possibly debridement of some of the other abscess on the face. The patient relates that she was doing very well after laser dermabrasion and did not think that the procedure was related to the current difficulties. However continues to have areas of peeling skin from the dermabrasion. 12/10/2017 patient is feeling better. She's had the incision and drainage performed. She is desperate to go home. Objective - Vital Signs Vital signs: Vital Signs Temp 97.8 F 12/10/17 15:45 Pulse 71 12/10/17 16:30 Resp 16 12/10/17 15:45 BP 128/65 12/10/17 16:30 Pulse Ox 97 12/10/17 16:30 Intake & Output 12/10/17 12/10/17 12/11/17 06:59 18:59 06:59 Intake Total 750 Output Total 2 Balance 748 Weight 59.1 kg Intake: IV 750 Oral 0 Output: Estimated Blood Loss 2 Other: Voiding Method Toilet # Voids 1 1 - Exam 47-year-old woman presents to Hospital complaining multiple abscess. Relates that the left eye swelling is improved and feels slightly better. HEENT: Anicteric conjunctiva are pink and moist nasal mucosa grossly intact without significant lesions, there is no thrush. Facial swelling is resolved. There is no left periorbital edema any further. The peeling skin over her upper lip has completely resolved. Facial erythema is improved. Incision and drainages occurred and dressings are in place on the left cheek greater than nose and submental area. Tenderness is resolved. Patient feels considerably better. Neck: The neck is supple without significant lymphadenopathy or thyromegaly. Lungs: Good bilateral air entry without significant crackles or wheezes. There is no significant bronchial sounds. There is no egophony or dullness. Heart: Regular rate and rhythm with an audible S1-S2, no S3 no S4. There is no significant murmur click or rub, PMI was nondisplaced. Abdomen: Positive bowel sounds soft and nontender without palpable masses or organomegaly. There was no guarding or rebound. Extremities: The upper extremities have excellent pulses they are symmetric, no significant petechiae or telangiectasia. No splinter hemorrhages were noted. The lower extremities are free from significant edema. The peripheral pulses were 2+ and symmetric. Neuro: Awake alert oriented to person place and time. There are no acute new gross focal sensory motor deficits. - Labs CBC & Chem 7: 12/10/17 06:29 12/10/17 06:29 Labs: Abnormal Lab Results - Last 24 Hours (Table) 12/10/17 12/10/17 12/10/17 Range/Units 06:29 07:18 09:14 Chloride 111 H (98-107) mmol/L Glucose 151 H (74-99) mg/dL POC Glucose (mg/dL) 169 H 174 H (75-99) mg/dL Total Protein 5.4 L (6.3-8.2) g/dL Albumin 3.0 L (3.5-5.0) g/dL 12/10/17 12/10/17 12/10/17 Range/Units 11:02 13:39 15:11 Chloride (98-107) mmol/L Glucose (74-99) mg/dL POC Glucose (mg/dL) 225 H 235 H 218 H (75-99) mg/dL Total Protein (6.3-8.2) g/dL Albumin (3.5-5.0) g/dL 12/10/17 Range/Units 17:56 Chloride (98-107) mmol/L Glucose (74-99) mg/dL POC Glucose (mg/dL) 281 H (75-99) mg/dL Total Protein (6.3-8.2) g/dL Albumin (3.5-5.0) g/dL Microbiology - Last 24 Hours (Table) 12/10/17 14:45 Gram Stain - Preliminary Face Wound Culture - Preliminary 12/10/17 14:45 Gram Stain - Preliminary Face Wound Culture - Preliminary 12/10/17 14:45 Anaerobic Culture - Preliminary Face 12/10/17 14:45 Anaerobic Culture - Preliminary Face 12/09/17 14:53 Blood Culture - Preliminary Blood No Growth after 24 hours Laboratory Results WBC 7.0 k/uL (3.8-10.6) 12/10/17 06:29 RBC 4.01 m/uL (3.80-5.40) 12/10/17 06:29 Hgb 12.3 gm/dL (11.4-16.0) 12/10/17 06:29 Hct 39.5 % (34.0-46.0) 12/10/17 06:29 MCV 98.5 fL (80.0-100.0) 12/10/17 06:29 MCH 30.7 pg (25.0-35.0) 12/10/17 06:29 MCHC 31.2 g/dL (31.0-37.0) 12/10/17 06:29 RDW 13.1 % (11.5-15.5) 12/10/17 06:29 Plt Count 263 k/uL (150-450) 12/10/17 06:29 Neutrophils % 63 % 12/10/17 06:29 Lymphocytes % 21 % 12/10/17 06:29 Monocytes % 6 % 12/10/17 06:29 Eosinophils % 7 % 12/10/17 06:29 Basophils % 0 % 12/10/17 06:29 Neutrophils # 4.4 k/uL (1.3-7.7) 12/10/17 06:29 Lymphocytes # 1.5 k/uL (1.0-4.8) 12/10/17 06:29 Monocytes # 0.4 k/uL (0-1.0) 12/10/17 06:29 Eosinophils # 0.5 k/uL (0-0.7) 12/10/17 06:29 Basophils # 0.0 k/uL (0-0.2) 12/10/17 06:29 Sodium 142 mmol/L (137-145) 12/10/17 06:29 Potassium 4.6 mmol/L (3.5-5.1) 12/10/17 06:29 Chloride 111 mmol/L (98-107) H 12/10/17 06:29 Carbon Dioxide 24 mmol/L (22-30) 12/10/17 06:29 Anion Gap 7 mmol/L 12/10/17 06:29 BUN 14 mg/dL (7-17) 12/10/17 06:29 Creatinine 0.59 mg/dL (0.52-1.04) 12/10/17 06:29 Est GFR (MDRD) Af Amer >60 (>60 ml/min/1.73 sqM) 12/10/17 06:29 Est GFR (MDRD) Non-Af >60 (>60 ml/min/1.73 sqM) 12/10/17 06:29 Glucose 151 mg/dL (74-99) H 12/10/17 06:29 POC Glucose (mg/dL) 281 mg/dL (75-99) H 12/10/17 17:56 POC Glu Hammer Repairer ID Rashmi Hdz 12/10/17 17:[address] Glu mg/dL 214 12/09/17 05:48 Hemoglobin A1c 9.1 % (4.0-6.0) H 12/09/17 05:48 Calcium 8.6 mg/dL (8.4-10.2) 12/10/17 06:29 Total Bilirubin 0.2 mg/dL (0.2-1.3) 12/10/17 06:29 AST 23 U/L (14-36) 12/10/17 06:29 ALT 20 U/L (9-52) 12/10/17 06:29 Alkaline Phosphatase 49 U/L (38-126) 12/10/17 06:29 Total Protein 5.4 g/dL (6.3-8.2) L 12/10/17 06:29 Albumin 3.0 g/dL (3.5-5.0) L 12/10/17 06:29 Urine HCG, Qual Not Detected (Not Detectd) 12/09/17 15:20 Vancomycin Trough 12.3 ug/mL 12/10/17 06:29 Microbiology 12/10/17 14:45 Face Gram Stain - Preliminary 12/10/17 14:45 Face Wound Culture - Preliminary 12/10/17 14:45 Face Gram Stain - Preliminary 12/10/17 14:45 Face Wound Culture - Preliminary 12/10/17 14:45 Face Anaerobic Culture - Preliminary 12/10/17 14:45 Face Anaerobic Culture - Preliminary 12/09/17 14:53 Blood Blood Culture - Preliminary No Growth after 24 hours Assessment and Plan (1) Facial cellulitis Narrative/Plan: 47-year-old female who has a long-standing history of diabetes mellitus type 1 with A1c of 9.1. Patient relates that she was having some difficulty with scarring of her face and underwent a laser dermabrasion involve the bilateral cheeks as well as the upper lip. She did well for some time after the procedure. She was progressing to the point in time of the layer of skin peeling with intact skin beneath when she started developed increasing difficulties with her face. The patient relates she had suffered an injury at work. She works for the [email or web address] and had injury to the dorsum of the left hand. She was treated with a course of ciprofloxacin. She was having some difficulties with the course since stopped and started it several times. She attempted one further attempt to complete the antibiotics when she should develop a specific and facial swelling, left eye swelling and some tongue swelling and constantly stop the antibiotic and took some Benadryl. After that she developed the lesions on her face. She does try to discount the tie into her dermabrasion, however we discussed that the skin is the major barrier to infection, and when it has been injured it increases its risk of developing an infection especially with her uncontrolled diabetes mellitus type 1. Antibiotic therapy with vancomycin was begun. We'll add in ceftriaxone at this time for coverage of potential gram-negative organisms, and for MSSA and strep for rapidly bacteriocidal activity. Topical treatment with mupirocin to the abscess sites. Is being seen by surgery with plans for draining of the submental abscess and for further culture data. Pain control appears to be adequate. The extensive facial swelling is definitely improved. Multivitamin with zinc is requested to improve her nutritional status. 12/10/2017 patient is now status post incision and drainage of the abscesses. She is feeling somewhat better. She is very anxious to go home.. The surgeon is allowed her to go home. There is a concern that she may have an ALLERGY to cephalosporins as noted by a bit of a reaction last evening to Rocephin with some itchiness to her throat. Consequently at the time of discharge she will be changed to clindamycin 300 mg every 8 hours for 7 days. Topical mupirocin will be applied to the open areas involving the draining should be covered. Ibuprofen as sent to her pharmacy for some pain control. She should follow-up with her primary care physician within 1 week to assure that she has significant improvement to the significant facial cellulitis and abscesses that had formed. We clarify the mupirocin is not a sulfa drug and should be no issue with utilizing this. He is instructed to contact the office if she develops significant gastroenteritis from her antibiotic therapy. She probably is ready for discharge to home. Current Visit: Yes Status: Acute Code(s): L03.211 - CELLULITIS OF FACE SNOMED Code(s): 755104212 (2) Diabetes mellitus type 1 with complications Current Visit: Yes Status: Acute Code(s): E10.8 - TYPE 1 DIABETES MELLITUS WITH UNSPECIFIED COMPLICATIONS SNOMED Code(s): 44950208 (3) Hemoglobin A1C greater than 9%, indicating poor diabetic control Current Visit: Yes Status: Acute Code(s): R73.09 - OTHER ABNORMAL GLUCOSE SNOMED Code(s): 858525079
--- NOTE | 2017-12-20 00:29 | P.OP ---
Date of Procedure: 12/10/17 Description of Procedure: Date of Procedure: 12/10/17 SURGEON: MIRACLE SMITH MD SOUND [employer] PERSON: None. PREOPERATIVE DIAGNOSES: 1. Facial cellulitis. 2. Facial abscess 3. Insulin-dependent diabetes type 1, uncontrolled. 4. Failed outpatient therapy POSTOPERATIVE DIAGNOSES: 1. Facial cellulitis. 2. Facial abscess 3. Insulin-dependent diabetes type 1, uncontrolled. 4. Failed outpatient therapy 5. MRSA OPERATION: 1. Incision and drainage of left cheek abscess and left submental abscess 2. Excision of submental abscess 2 x 1 cm. ANESTHESIA: MAC with local ESTIMATED BLOOD LOSS: 5 mL. SPECIMENS REMOVED: Aerobic and anaerobic culture and chin lesion. COMPLICATIONS: None. Condition: stable Disposition: floor Operative Findings: 1. Abscess along the left chin and cheek. INDICATIONS: The patient is a 47-year-old female who had an abscess along the left cheek and submental abscess. She has failed outpatient management, hence her admission. Surgical intervention was discussed whereby despite being on vancomycin her symptoms progressed. Surgical intervention was reviewed with benefits and risks. Informed consent was obtained. DESCRIPTION: Patient was brought to the operating room and placed in supine position. After adequate IV sedation, the left cheek and chin was prepped and draped in standard sterile fashion. Prior to incision, a timeout protocol was confirmed with surgical team regarding the patient's name including procedures to be performed. An excision along the left chin was made after localizing the incision. The benign skin lesion 2 x 1 cm was made in the past. Loculations had been disrupted. Separately, the left cheek was also drained using a hemostat. The wound was copiously irrigated using normal saline and hydrogen peroxide. The skin was cleansed. 4 x 4's was placed along the cheek and neck. The patient was awoken from anesthesia and tolerated the procedure well.
== END 2017-12-10 21:35 | disposition home or self-care (01) | DRG 580 ==
LOC: EC 12:07 → 6PED 14:08
PROVIDERS: ADMIT Family Medicine; ATTEND Family Medicine
PROC: 0W920ZZ Drainage of Face, Open Approach (ICD-10-PCS; principal; 2017-12-10 08:00)
DX: L02.01 Cutaneous abscess of face (principal); L03.211 Cellulitis of face; E10.8 Type 1 diabetes mellitus with unspecified complications; L03.213 Periorbital cellulitis; A46 Erysipelas; B95.62 Methicillin resistant Staphylococcus aureus infection as the cause of diseases classified elsewhere; F17.210 Nicotine dependence, cigarettes, uncomplicated; F41.9 Anxiety disorder, unspecified; Z79.2 Long term (current) use of antibiotics; Z79.899 Other long term (current) drug therapy; Z79.4 Long term (current) use of insulin
CPT/HCPCS: 36415; 76536; 80048; 80053; 80202; 81025; 83036; 85025; 87040; 87070; 87075; 87077; 87186; 87205; 88304; 96365; 99284

== ENCOUNTER → 2020-05-13 | Outpatient (CLI) | payer BC ==
--- NOTE | 2020-05-15 11:50 | CT ---
EXAMINATION TYPE: CT iac wo con DATE OF EXAM: 05/13/2020 COMPARISON: None HISTORY: Right sided ear pain, ringing and headaches. CT DLP: 142.7mGycm Automated exposure control for dose reduction was used. FINDINGS: The external auditory canals are patent bilaterally. The middle ear ossicles are symmetric and unremarkable. There is no evidence of suspicious surrounding soft tissue density to suggest chol esteatoma. The scutum is preserved bilaterally. The cochlea and the semicircular canals are symmetric and unremarkable. Vestibular aqueduct and inte rnal carotid canal appear unremarkable. Temporomandibular joints are maintained bilaterally. There is sclerosis involving the mastoid air cells with reduced air cells compatible with chronic mastoidit is. IMPRESSION: 1. Chronic right mastoiditis.
== END | disposition home or self-care (01) ==
LOC: RADCTMAIN 15:10
PROVIDERS: ATTEND Otolaryngology Otology & Neurotology
DX: H70.11 Chronic mastoiditis, right ear (principal)
CPT/HCPCS: 70480

== ENCOUNTER → 2020-08-02 | Outpatient (CLI) | payer OTHER ==
[2020-08-02 15:56] LABS: Basophils % (A) 0 %; Eosinophils # (A) 0.3 k/uL (0-0.7); Eosinophils % (A) 3 %; HGB 13.8 gm/dL (11.4-16.0); Lymphocytes # (A) 2.6 k/uL (1.0-4.8); Lymphocytes % (A) 30 %; MCH 31.4 pg (25.0-35.0); MCHC 32.1 g/dL (31.0-37.0); MCV 97.9 fL (80.0-100.0); Mean Platelet Volume 6.9; Monocytes # (A) 0.4 k/uL (0-1.0); Monocytes % (A) 4 %; Neutrophils # (A) 5.2 k/uL (1.3-7.7); Neutrophils % (A) 60 %; Platelet Count 323 k/uL (150-450); RDW 13.4 % (11.5-15.5); WBC 8.7 k/uL (3.8-10.6)
[2020-08-02 16:09] LABS: Potassium 4.4 mmol/L (3.5-5.1)
== END | disposition home or self-care (01) ==
LOC: LABPAT 14:28
PROVIDERS: ATTEND Orthopaedic Surgery
DX: Z01.818 Encounter for other preprocedural examination (principal); M75.42 Impingement syndrome of left shoulder
CPT/HCPCS: 80051; 85025; 93005

== ENCOUNTER 2020-08-04 12:53 | Day surgery (SDC) | payer BC, OTHER ==
[2020-08-03 09:17] VITALS: BMI 23.1
--- NOTE | 2020-08-03 15:53 | HP ---
HISTORY AND PHYSICAL DATE OF SURGERY: 08/04/2020 Bekah Simpson is a 49-year-old patient seen with progressive left shoulder pain. Options for treatment were discussed with her. She elected to proceed with arthroscopy. Consent was obtained. PAST MEDICAL HISTORY: Insulin-dependent diabetes. PAST SURGICAL HISTORY: Carpal tunnel release, sinus surgery. DAILY MEDICATIONS: Humalog insulin. ALLERGIES: AMOXICILLIN, CIPROFLOXACIN AND ROCEPHIN. SOCIAL HISTORY: She denies current tobacco use. PHYSICAL EVALUATION OF THE LEFT SHOULDER: Flexion 70 degrees, abduction 40 degrees. External rotation 20 degrees with weakness. Tenderness along the anterolateral acromion and rotator cuff insertion site. Positive impingement at 90 degrees. Distal neurovascular exam is intact. RADIOGRAPHS: Left shoulder radiographs revealed a type 2 anterior acromion, evidence for acromioclavicular joint osteoarthritis and cystic changes of the greater tuberosity. An MRI of the left shoulder revealed acromioclavicular joint osteoarthritis and type 2 anterior acromion. IMPRESSION: 1. Left shoulder impingement. 2. Left shoulder acromioclavicular joint osteoarthritis. 3. Left shoulder adhesive capsulitis. PLAN: Left shoulder arthroscopy, subacromial decompression, Eben procedure and lysis of adhesions. MMODL / IJN: [id number] /
[~2020-08-04 12:53] MED LIST: DEXAMETHASONE SOD PHOSPHATE 10 MG/ML 1 ML VIAL IV ONE; HYDROmorphone 0.5 MG/0.5 ML SYRINGE IVP PRN; LACTATED RINGERS 1,000 ML IV SCH; MIDAZOLAM 2 MG/2 ML VIAL IV PRN; ONDANSETRON 4 MG/2 ML VIAL IVP ONE; Pre Op ABX Message 1 EACH MISC MISCELLANE ONE
[2020-08-04 13:59] LABS: Glucose,Whole Blood 203 mg/dL (75-99)
[2020-08-04] MEDS ORDERED: MIDAZOLAM 2 MG/2 ML VIAL IV ONE (14:15)
--- NOTE | 2020-08-04 15:04 | P.ANPRN ---
Procedure Note - Anesthesia - Nerve Block Performed Left Interscalene Single Time Out Performed: Yes Date of Procedure: 08/04/20 Procedure Start Time: 14:14 Procedure Stop Time: 14:19 Location of Patient: PreOp Indication: Acute Post-Operative Pain, Analgesia, Requested by Surgeon Sedation Type: Sedate with meaningful contact maintained Preparation: Sterile Prep Position: Sitting Catheter: Indwelling Needle Types: Pajunk Needle Gauge: 21 Ultrasound used to visualize needle placement: Yes Ultrasound used to observe medication spread: Yes Injectate: Other (see comment) (4mg dexamethasone) Blood Aspirated: No Pain Paresthesia on Injection Noted: No Resistance on Injection: Normal Image Stored and Saved: Yes Events: Uneventful and Well Tolerated
[2020-08-04] MEDS ORDERED: PROPOFOL 10 MG/ML 20 ML VIAL IV ONE (15:15)
[2020-08-04] MEDS ORDERED: LIDOCAINE 1% INJ 10MG/ML (20 ML MDV) ONE (15:15)
[2020-08-04] MEDS ORDERED: SUCCINYLCHOLINE CHLORIDE 100 MG/5 ML SYR IV ONE (15:15)
[2020-08-04] MEDS ORDERED: DEXAMETHASONE SOD PHOSPHATE 4 MG/ML 1 ML VIAL ONE (15:15)
[2020-08-04] MEDS ORDERED: ROPIVACAINE 5 MG/ML 30 ML VIAL ONE (15:15)
[2020-08-04] MEDS ORDERED: MIDAZOLAM 2 MG/2 ML VIAL ONE (15:15)
--- NOTE | 2020-08-04 16:44 | P.OP ---
Date of Procedure: 08/04/20 Preoperative Diagnosis: Left shoulder impingement Postoperative Diagnosis: 1. Left shoulder impingement 2. Left shoulder acromioclavicular joint osteoarthritis 3. Left shoulder partial long head biceps tendon tear 4. Left shoulder superficial rotator cuff tear Procedure(s) Performed: 1. Left shoulder arthroscopic subacromial decompression 2. Left shoulder arthroscopic Eben procedure 3. Left shoulder arthroscopic biceps tenotomy 4. Left shoulder arthroscopic debridement partial rotator cuff tear Anesthesia: GETA, regional, local (Interscalene block) Surgeon: Bernardo Jordan Estimated Blood Loss (ml): 10 Pathology: none sent Condition: stable Disposition: PACU Indications for Procedure: 49-year-old patient seen with progressive left shoulder pain. After treatment options discussed, she elected to proceed with arthroscopy. Operative Findings: See description of procedure Description of Procedure: Patient underwent an interscalene block by department of anesthesia. The patient was then taken to the operative suite. The patient underwent a general anesthetic by the department of anesthesia. The patient was placed into a lateral position and secured. There was appropriate padding of the bony prominence. Left shoulder was then prepped and draped in normal sterile orthopedic fashion. We placed the extremity in 10 pounds of longitudinal traction. A posterior incision was now made for a posterior working portal site. The trocar and cannula were inserted into the glenohumeral joint. Arthroscopy was initiated. Spinal needle was now inserted anteriorly, to ascertain the anterior working portal site. An incision was now made in that area, a trocar was inserted followed by a probe. There was some partial tearing and hyperemia long head biceps tendon. There were grade 1 chondromalacia changes of the humeral head with no osteochondral tears present. It was some mild superficial fraying of the anterior labrum. I performed an arthroscopic biceps tenotomy. I debrided the superficial fraying of the labrum. I again probed the labrum and found to be stable. Instruments now removed from glenohumeral joint. Utilizing the posterior working portal site, the trocar and cannula were inserted into the subacromial space. Arthroscopy initiated. I made an incision 2 fingerbreadths lateral to the acromion. I introduced my trocar followed by my ArthroCare ablator. I now began ablating thick subacromial bursal tissue, which exposed the undersurface of the anterior acromion. There was diminished subacromial space. There was a very prominent anterior acromion. A motorized bur was introduced and a subacromial decompression was performed. I also excised some osteophytes off the inferior aspect of the distal clavicle. The AC joint was visualized and noted to be fairly arthritic. The motorized bur was introduced in the anterior portal site and a Eben procedure was performed without difficulty, decompressing the AC joint nicely. I turned my attention to the rotator cuff. There was some partial tearing along the distal supraspinatus tendon area. I debrided that getting down to stable tendon tissue. I now probed the area again and now finding a full-thickness perforation. I injected 1 mL Renyte intra-articular. Instruments now removed from the portal sites. All portal sites were approximated with nylon suture. Sterile dressings were applied followed by a shoulder sling. Silas MONTANA assisted in this complex case. The patient was awakened, transferred to a bed, and taken to recovery in stable condition.
[2020-08-04 16:45] VITALS: TEMP 97.5
[2020-08-04 17:00] VITALS: RESP 16
[2020-08-04 17:05] LABS: Glucose,Whole Blood 174 mg/dL (75-99)
[2020-08-04 17:50] VITALS: BP 127/84; PULSE 64
== END 2020-08-04 18:41 | disposition home or self-care (01) ==
LOC: OR 12:53
PROVIDERS: ATTEND Orthopaedic Surgery
DX: M75.102 Unspecified rotator cuff tear or rupture of left shoulder, not specified as traumatic (principal); M19.012 Primary osteoarthritis, left shoulder; M75.42 Impingement syndrome of left shoulder; M66.822 Spontaneous rupture of other tendons, left upper arm; M94.212 Chondromalacia, left shoulder; M25.712 Osteophyte, left shoulder; E11.9 Type 2 diabetes mellitus without complications; Z79.4 Long term (current) use of insulin; Z98.890 Other specified postprocedural states; Z88.1 Allergy status to other antibiotic agents; Z88.0 Allergy status to penicillin; Z88.2 Allergy status to sulfonamides
CPT/HCPCS: 64415; 76942; 29823; 29824; J2250; J1100 ×2; J2405; J2001; J2795; J0330; J2704

== ENCOUNTER → 2020-11-14 | Outpatient (CLI) | payer OTHER ==
[2020-11-14 15:59] LABS: African American GFR (CKD) 116.3 (60.0-200.0); Albumin 4.5 g/dL (3.80-4.90); Albumin/Globulin Ratio 2.37 (1.60-3.17); Anion Gap 8.5 mmol/L (4.00-12.00); BUN/Creat Ratio 17.14 Ratio (12.00-20.00); Calcium 9.1 mg/dL (8.7-10.3); Carbon Dioxide 28.5 mmol/L (21.6-31.8); Globulin 1.9 g/dL (1.6-3.3); Non-African American GFR(CKD) 100.3 (60.0-200.0); Potassium 4.1 mmol/L (3.5-5.5); Total Bilirubin 0.4 mg/dL (0.3-1.2); Total Protein 6.4 g/dL (6.2-8.2)
[2020-11-14 16:07] LABS: T4, Free (Free Thyroxine) 0.9 ng/dL (0.80-1.80)
[2020-11-14 17:10] LABS: Hemoglobin A1C 7.8 % (4.0-6.0)
[2020-11-14 19:56] LABS: Urine Creatinine 29.6 mg/dL
== END | disposition home or self-care (01) ==
LOC: LABWHC1 09:40
DX: Z20.822 Contact with and (suspected) exposure to COVID-19 (principal); E10.65 Type 1 diabetes mellitus with hyperglycemia; E02 Subclinical iodine-deficiency hypothyroidism
CPT/HCPCS: 36415; 80053; 82043; 82570; 83036; 84439; 84443; 86769

== ENCOUNTER 2020-12-19 11:40 | Day surgery (SDC) | payer OTHER ==
[2020-12-13 15:38] VITALS: BMI 23.1
--- NOTE | 2020-12-18 11:20 | HP ---
HISTORY AND PHYSICAL DATE OF SURGERY: 12/19/2020 HISTORY OF PRESENT ILLNESS: Bekah Simpson is a 50-year-old patient seen with persistent left shoulder stiffness/adhesions consistent with adhesive capsulitis after previously having undergone arthroscopic surgery. I recommended manipulation under anesthesia of the left shoulder with steroid injection. The procedure, risks, complications, benefits, and recovery were reviewed. She was agreeable and consent was obtained. PAST MEDICAL HISTORY: Insulin-dependent diabetes. SURGICAL HISTORY: Carpal tunnel surgery, sinus surgery, left shoulder arthroscopy. MEDICATIONS: Humalog, Lantus, Robinson. ALLERGIES: AMOXICILLIN, CIPRO, ROCEPHIN. SOCIAL HISTORY: She denies current tobacco use. PHYSICAL EXAMINATION: Evaluation of the left shoulder, well-healed arthroscopic portal sites. There was no evidence for any infection, hyperemia, or infective process. Flexion is 100 degrees, abduction is 90 degrees, external rotation is 30 degrees. Her distal neurovascular exam is intact. RADIOGRAPHS: Radiographs of the left shoulder revealed a stable conversion to a flat anterior acromion. IMPRESSION: 1. Left shoulder adhesive capsulitis. 2. History of left shoulder arthroscopy. 3. Insulin-dependent diabetes. PLAN: Left shoulder manipulation under anesthesia with steroid injection. MMODL / IJN: [id number] /
[~2020-12-19 11:40] MED LIST changes: +CLINDAMYCIN 900 MG in DEXTROSE 5% IN WATER 50 ML IVPB PRN; -DEXAMETHASONE SOD PHOSPHATE 10 MG/ML 1 ML VIAL IV ONE; +DEXAMETHASONE SOD PHOSPHATE 4 MG/ML 1 ML VIAL IV ONE; +LIDOCAINE 1% (10MG/ML) FOR IV START INTRADERMA PRN; -Pre Op ABX Message 1 EACH MISC MISCELLANE ONE
[2020-12-19 12:21] LABS: Glucose,Whole Blood 226 mg/dL (75-99)
[2020-12-19] MEDS ORDERED: INSULIN ASPART (NovoLOG) 100 UNIT/ML VIAL SQ ONE (12:24)
[2020-12-19] MEDS ORDERED: LIDOCAINE 1% INJ 10MG/ML (20 ML MDV) ONE (12:48)
[2020-12-19] MEDS ORDERED: BUPIVACAINE (PF) 0.25% 30 ML VIAL ONE (12:48)
[2020-12-19] MEDS ORDERED: fentaNYL (PF) 50 MCG/ML 2 ML AMP ONE (12:48)
[2020-12-19] MEDS ORDERED: MIDAZOLAM 2 MG/2 ML VIAL ONE (12:48)
[2020-12-19] MEDS ORDERED: PROPOFOL 10 MG/ML 20 ML VIAL IV ONE (12:48)
--- NOTE | 2020-12-19 13:09 | P.OP ---
Date of Procedure: 12/19/20 Preoperative Diagnosis: Left shoulder adhesive capsulitis Postoperative Diagnosis: Left shoulder adhesive capsulitis Procedure(s) Performed: Manipulation under anesthesia left shoulder Anesthesia: MAC, local Surgeon: Bernardo Jordan Estimated Blood Loss (ml): 0 Pathology: none sent Condition: stable Disposition: PACU Indications for Procedure: 51-year-old patient seen with persistent left shoulder adhesive capsulitis. After treatment options were discussed, she elected to proceed with manipulation under anesthesia. She requested no steroids secondary to her diabetes. Operative Findings: See description of procedure Description of Procedure: Patient was taken to a monitored anesthesia care. This patient received IV sedation by the department of anesthesia. Once sufficient good anesthesia was noted I performed a manipulation of the left shoulder. I was able to achieve full range of motion with audible tearing of the adhesions. The anterior aspect of the shoulder was prepped and draped in the normal sterile fashion. I injected 3 mL of quarter percent plain Marcaine intra-articular. I took the shoulder through range of motion. I applied a sterile Band-Aid. The patient was awakened having tolerated the procedure well.
[2020-12-19] MEDS ORDERED: HYDROmorphone 0.5 MG/0.5 ML SYRINGE IVP ONE ×4 (13:18→13:45)
[2020-12-19 13:27] VITALS: TEMP 97
[2020-12-19] MEDS ORDERED: KETOROLAC 15 MG/ML 1 ML VIAL IVP ONE (13:30)
[2020-12-19 13:57] LABS: Glucose,Whole Blood 152 mg/dL (75-99)
[2020-12-19] MEDS ORDERED: fentaNYL (PF) 50 MCG/ML 2 ML AMP IVP ONE (14:00)
[2020-12-19] MEDS ORDERED: LACTATED RINGERS 1,000 ML IV ONE (14:09)
[2020-12-19 14:19] VITALS: RESP 20
[2020-12-19] MEDS ORDERED: HYDROcodone/APAP 7.5-325MG 1 EACH TAB ONE (14:25)
[2020-12-19] MEDS ORDERED: HYDROcodone/APAP 7.5-325MG 1 EACH TAB PO ONE (14:26)
[2020-12-19 14:58] VITALS: BP 145/76; PULSE 60
== END 2020-12-19 15:08 | disposition home or self-care (01) ==
LOC: OR 11:40
PROVIDERS: ATTEND Orthopaedic Surgery
DX: M75.02 Adhesive capsulitis of left shoulder (principal); E11.9 Type 2 diabetes mellitus without complications; R12 Heartburn; Z87.891 Personal history of nicotine dependence; Z98.890 Other specified postprocedural states; Z79.4 Long term (current) use of insulin; Z79.891 Long term (current) use of opiate analgesic; Z88.1 Allergy status to other antibiotic agents; Z88.0 Allergy status to penicillin
CPT/HCPCS: 23700; J2250; J2405; J2001; J3010; J1885; J2704; J1170

== ENCOUNTER → 2021-07-06 | Outpatient (CLI) | payer OTHER ==
--- NOTE | 2021-07-07 05:55 | MR ---
EXAMINATION TYPE: MR shoulder RT wo con DATE OF EXAM: 07/06/2021 COMPARISON: None HISTORY: Right shoulder pain Multiplanar multiecho imaging of the right shoulder without contrast. There is narrowing of the glenohumeral joint space. The biceps tendon is intact. The subscapularis te ndon is intact. Glenoid jaiden appear intact. The AC joint is intact. There is no significant subacromial impingement. There is full-thickness defe ct in the anterior aspect of the supraspinatus tendon with increased signal on the T2 images. There i s no retraction. There is small shoulder joint effusion. I see no focal bone destruction. IMPRESSION: Full-thickness tear of the anterior aspect of the supraspinatus tendon. No retraction. No significant subacromial impingement. There is some arthritic narrowing of the glenohumeral joint space.
== END | disposition home or self-care (01) ==
LOC: RADMRIMAIN 16:41
PROVIDERS: ATTEND Orthopaedic Surgery
DX: M75.111 Incomplete rotator cuff tear or rupture of right shoulder, not specified as traumatic (principal); M19.011 Primary osteoarthritis, right shoulder